=== PATIENT | female | born 1940 | race Caucasian/White ===

== ENCOUNTER → 2017-02-22 | Outpatient (CLI) | payer MEDICARE ==
--- NOTE | 2017-02-23 08:54 | RADIOLOGY REPORT PS360 ---
DIG MAMM-SCREEN [facility] W/CAD ORDERING PHYSICIAN : KAREN SalvadorATIGAEL AGE: 76 years GENDER: Female HISTORY:No new complaints. No hormones. Family history. Mother with breast cancer 81 years old TECHNIQUE: Std CC & MLO images were obtained. R2 CAD reviewed. COMPARISON: February 2016, 2014, August 2013 and December 2012 FINDINGS: Low-density breast bilaterally with scattered areas of asymmetric density RIGHT BREAST: stable mild asymmetric island glandular tissue at the deep activity tail right breast. numerous small and tiny calcifications right breast which appears similar to last years study but are shown slight progression of small calcifications over time. Although more likely benign are some areas which would benefit from magnification spot views to further evaluate. The area labeled A at the central breast contains numerous tiny as well as dense calcifications. However warrants spot views to evaluate the numerous smaller calcifications in this area. This area showed only slight progression of the small calcification since previous multiple studies. There is also an area Labeled B which is associated with some numerous tiny faint groupings calcifications which follows a serpiginous tubular course and have become slightly more evident over time.- Would recommend magnification views of these areas particularly. Area A and B particularly warrants magnification CC and 90 degree views to further evaluate Area Labeled C appears to be astable small cluster of calcifications- just anterior to the percutaneous biopsy clip.- It appears [facility] Possibly performed at [facility]. LEFT BREAST:. No new areas of concern. Minimal density at medial left breast unchanged. . A few small scattered punctate calcifications in the left breast, most evident at the medial breast less numerous on the left than right Follow-up in one year adequate ------IMPRESSION: RIGHT BREAST.:. Areas of grouped Calcifications warrant magnification spot views.: Area A: Subtle progression of these more likely benign calcifications over time is noted, but with slight increased of the tiny calcifications in this area would suggest magnification spot views. Area B: Tiny calcifications was seen to follow serpiginous tubular structure. Indeterminate character.. Could be vascular but since they have shown subtle progression since previous studies recommend magnification spot views. Magnification spot view should focus on the above Area A and B Area C. Stable type cluster of punctate calcifications just anterior to previous biopsy site. This is not changed. LEFT BREAST. Unchanged. Follow-up left mammogram 1 year .--- BI-RADS CATEGORY: 0_Incomplete: Need additional imaging RECOMMENDED FOLLOWUP: ADD ADDITIONAL IMAGING Magnification spot views of right breast as above (A letter has been sent to the patient regarding results of the study.)
== END ==
LOC: RAD 08:33
DX: Z12.31 Encounter for screening mammogram for malignant neoplasm of breast (principal)
CPT/HCPCS: G0202